=== PATIENT | female | born 1955 | race African-American/Black ===

== ENCOUNTER 2022-12-07 22:19 | Emergency (ER) | payer SELFPAY ==
[~2022-12-07] VITALS: Ht 162.6 cm; Wt 68.0 kg
--- NOTE | 2022-12-07 22:20 | NUR ---
PT TO BED 10.
--- NOTE | 2022-12-07 22:24 | NUR ---
MIRIAN KWAW AT BEDSIDE ASSESSING PT.
[2022-12-07 22:25] VITALS: BP 127/79
--- NOTE | 2022-12-07 22:30 | NUR ---
PT RESTING IN BED, A/OX4, CHEST RISING AND FALLS SYMETRICAL, NO S/S DISTRESS, PT ON MONITOR
[2022-12-07] MEDS ORDERED: ASPIRIN 325 MG TAB PO ONE (22:35)
--- NOTE | 2022-12-07 22:44 | NUR ---
RAD AT BEDSIDE
[2022-12-07 22:47] LABS: BASOPHILS # (AUTO) 0.1 K/uL (0.00-0.22); BASOPHILS % (AUTO) 0.7 % (0.0-2.0); EOSINOPHILS # (AUTO) 0.3 K/uL (0-0.4); EOSINOPHILS % (AUTO) 4.1 % (0.0-4.0); HEMATOCRIT 36.1 % (36-48); LYMPHOCYTES # (AUTO) 3.1 K/uL (2.5-16.5); LYMPHOCYTES % (AUTO) 38.3 % (20.5-51.1); MEAN CORPUSCULAR HEMOGLOBIN 28 pg (27-31); MEAN CORPUSCULAR HGB CONC 33 g/dL (33-37); MEAN CORPUSCULAR VOLUME 84.6 fL (80-94); MONOCYTES # (AUTO) 0.6 K/uL (0.8-1.0); MONOCYTES % (AUTO) 7.6 % (1.7-9.3); NEUTROPHILS % (AUTO) 49.3 % (42.2-75.2); PLATELET COUNT (AUTO) 252 K/uL (140-450); RED BLOOD CELL COUNT(AUTO) 4.27 MIL/uL (4.20-5.40); WHITE BLOOD COUNT (AUTO) 8.2 K/uL (4.8-10.8)
[2022-12-07 23:08] LABS: ALBUMIN 3.7 g/dL (3.4-5.0); ANION GAP 12.7 (8-16); CARBON DIOXIDE 27.6 mmol/L (21-32); POTASSIUM 4.3 mmol/L (3.5-5.1); TOTAL BILIRUBIN 0.2 mg/dL (0.0-1.0)
[2022-12-07 23:13] LABS: HDL CHOLESTEROL 56 mg/dL (40-60); LDL (CALC) 28 mg/dL (60-100); TRIGLYCERIDES 153 mg/dL (30-150)
[2022-12-07] MEDS ORDERED: ALUMINUM HYD/MAG/SIMETHICONE 30 ML UDC PO ONE (23:35)
--- NOTE | 2022-12-07 23:36 | NUR ---
Jerald shukla in EDM - 12/07/22 at [id number] Price verbally informed of patient's stated pain of "12/16." Dr. Price verbalized understanding, no new orders.
[2022-12-08] MEDS ORDERED: ESOM40EC PO (02:33)
[2022-12-08 02:43] VITALS: BP 133/80
== END 2022-12-08 02:43 | disposition home or self-care (01) ==
LOC: MED 22:19
DX: R07.2 Precordial pain (principal); K21.9 Gastro-esophageal reflux disease without esophagitis; Z98.890 Other specified postprocedural states; Z79.899 Other long term (current) drug therapy
CPT/HCPCS: 36415; 71045; 71275; 80053; 80061; 83880; 84484; 85025; 85379; 93005; 93970; 99285; Q0092; Q9967